=== PATIENT | female | born 1970 | race Caucasian/White ===

== ENCOUNTER → 2016-10-18 | Outpatient (CLI) | payer BC ==
[~2016-10-18] MED LIST: PREVACID 30MG30 M1 PO; ZOLOFT100 MG PO
== END ==
LOC: MC.RAD 07:30
DX: N61.0 Mastitis without abscess (principal); N63 Unspecified lump in breast

== ENCOUNTER → 2016-11-15 | Outpatient (CLI) | payer BC | LOC: MC.RAD 07:30 | DX: Z09 Encounter for follow-up examination after completed treatment for conditions other than malignant neoplasm (principal); N60.02 Solitary cyst of left breast; N63 Unspecified lump in breast ==